=== PATIENT | male | born 1960 | race Caucasian/White ===

== ENCOUNTER 2022-01-04 03:13 | Observation (INO) | payer BC ==
[2022-01-04] MEDS ORDERED: DIPHTH,PERTUSS(ACELL),TET 0.5 ML DISP.SYRIN IM ONE ×2 (04:05→04:21)
[2022-01-04 04:19] LABS: BASO % 0.8 % (0-2.0); EOS % 1.1 % (0-4.5); HEMATOCRIT 42.2 % (35.4-49); HEMOGLOBIN 14.8 GM/dL (11.7-16.9); LYMPH % 23.9 % (8-40); MCH 29.6 pg (25.7-33.7); MCHC 35.1 g/dl (32.0-35.9); MEAN CELL VOLUME 84.4 fl (80-96); MEAN PLT VOLUME 8.3 fl (7.5-11.1); MONO % 6.8 % (3.8-10.2); NEUT % 67.4 % (42.8-82.8); PLATELET COUNT 185 10^3/uL (134-434); RDW 12.9 % (11.9-15.9); WHITE BLOOD COUNT 6.7 K/mm3 (4.0-10.0)
[2022-01-04 04:35] LABS: CHLORIDE 104 mmol/L (98-107); SODIUM 139 mmol/L (136-145)
[2022-01-04 04:37] LABS: CALCIUM 8.9 mg/dL (8.5-10.1)
[2022-01-04 04:38] LABS: ANION GAP 8 MMOL/L (8-16); BLOOD UREA NITROGEN 11.5 mg/dL (7-18); CO2 27 mmol/L (21-32); GLUCOSE,RANDOM 140 mg/dL (74-106)
[2022-01-04 04:41] LABS: CREATININE 0.9 mg/dL (0.55-1.3); SGOT/AST 25 U/L (15-37); SGPT/ALT 33 U/L (13-61)
[2022-01-04 04:43] LABS: BILIRUBIN,TOTAL 0.3 mg/dL (0.2-1); TOT PROT 7.6 g/dl (6.4-8.2)
[2022-01-04 04:44] LABS: ALK PHOS 95 U/L (45-117)
[2022-01-04] MEDS ORDERED: HEPARIN NA (PORCINE) 5,000 UNITS/ML 1ML VIAL ONE (12:13)
[2022-01-04] MEDS: HEPARIN NA (PORCINE) 5,000 UNITS/ML 1ML VIAL SQ SCH ×2 (12:16→21:35)
[2022-01-04 23:05] VITALS: BMI 29.1
[2022-01-05 07:15] LABS: CALCIUM 8.3 mg/dL (8.5-10.1)
[2022-01-05 07:16] LABS: ALBUMIN 3.5 g/dl (3.4-5.0); BLOOD UREA NITROGEN 15.1 mg/dL (7-18)
[2022-01-05 07:19] LABS: CREATININE 0.9 mg/dL (0.55-1.3)
[2022-01-05 07:21] LABS: BILIRUBIN,TOTAL 0.7 mg/dL (0.2-1)
[2022-01-05 07:29] LABS: BASO % 0.6 % (0-2.0); EOS % 1.4 % (0-4.5); HEMATOCRIT 39.4 % (35.4-49); HEMOGLOBIN 13.9 GM/dL (11.7-16.9); LYMPH % 21.9 % (8-40); MCH 29.7 pg (25.7-33.7); MCHC 35.2 g/dl (32.0-35.9); MEAN CELL VOLUME 84.4 fl (80-96); NEUT % 69.1 % (42.8-82.8); PLATELET COUNT 182 10^3/uL (134-434); RBC 4.67 M/mm3 (4.00-5.60); RDW 12.9 % (11.9-15.9); WHITE BLOOD COUNT 6.3 K/mm3 (4.0-10.0)
[2022-01-05] MEDS ORDERED: IBUPROFEN 800 MG/8 ML IJ IVPB PRN ×2 (08:02→10:52)
[2022-01-05] MEDS: HEPARIN NA (PORCINE) 5,000 UNITS/ML 1ML VIAL SQ SCH ×2 (10:08→22:06)
[2022-01-05] MEDS: LISINOPRIL 10 MG TABLET PO SCH (11:11)
[2022-01-06 09:18] LABS: URINE APPEARANCE CLEAR; URINE BILIRUBIN NEGATIVE (NEGATIVE); URINE COLOR YELLOW; URINE GLUCOSE (UA) NEGATIVE (NEGATIVE); URINE KETONE NEGATIVE (NEGATIVE); URINE LEUK ESTERASE NEGATIVE (NEGATIVE); URINE NITRITE NEGATIVE (NEGATIVE); URINE PROTEIN NEGATIVE (NEGATIVE); URINE UROBILINOGEN 0.2 mg/dL (0.2-1.0)
[2022-01-06 09:21] LABS: BLOOD UREA NITROGEN 16.5 mg/dL (7-18); CALCIUM 8.8 mg/dL (8.5-10.1); MAGNESIUM 2.3 mg/dL (1.8-2.4)
[2022-01-06 09:24] LABS: CREATININE 0.8 mg/dL (0.55-1.3)
[2022-01-06] MEDS: HEPARIN NA (PORCINE) 5,000 UNITS/ML 1ML VIAL SQ SCH (09:32)
[2022-01-06] MEDS: LISINOPRIL 10 MG TABLET PO SCH (09:32)
[2022-01-06 13:48] VITALS: BP 138/71; PULSE 64; TEMP 98.3
== END 2022-01-06 15:48 | disposition home or self-care (01) ==
LOC: JER 03:13 → JERBED 06:01 → UNDOADMOB 06:01 → OBSVTOIN 07:28 → INTOOBSV 07:28 → JERBED 18:26 → J4S 18:26 → JERBED 01-05 07:26
PROVIDERS: ATTEND Internal Medicine
PROC: 3E0234Z Introduction of Serum, Toxoid and Vaccine into Muscle, Percutaneous Approach (ICD-10-PCS; principal; 2022-01-05)
PROC: 3E023GC Introduction of Other Therapeutic Substance into Muscle, Percutaneous Approach (ICD-10-PCS; 2022-01-05)
PROC: 3E033GC Introduction of Other Therapeutic Substance into Peripheral Vein, Percutaneous Approach (ICD-10-PCS; 2022-01-05)
DX: I10 Essential (primary) hypertension (principal); R55 Syncope and collapse; S09.90XA Unspecified injury of head, initial encounter; W22.8XXA Striking against or struck by other objects, initial encounter; Y93.89 Activity, other specified; Y92.002 Bathroom of unspecified non-institutional (private) residence as the place of occurrence of the external cause; I45.10 Unspecified right bundle-branch block; R42 Dizziness and giddiness
CPT/HCPCS: 36415; 70450-TC; 71045-TC-FY; 72125-TC; 80048; 80053; 80307; 81003; 83036; 83735; 84484; 85025; 90715; 93005; 93010; 93306-TC; 96372; 96374; 99285-25; C9803; G0378; J1644; U0003; U0005